=== PATIENT | female | born 1960 | race Caucasian/White ===

== ENCOUNTER 2024-01-17 09:05 | Emergency (ER) | payer OTHER ==
[~2024-01-17] VITALS: Ht 175.3 cm; Wt 80.0 kg
[2024-01-17 09:07] VITALS: O2SAT 97
[2024-01-17] MEDS: MORPHINE SULFATE 4 MG/ML INJ (FOR IV/IM USE) IV STA (09:38)
[2024-01-17 09:46] LABS: BASOPHILS % 0.4 % (0.0-2.0); HEMATOCRIT. 41.7 % (36.0-48.0); HEMOGLOBIN. 13.6 g/dL (12.0-16.0); LYMPHOCYTES % 10.9 % (20.0-50.0); MEAN CORPUSCULAR HEMOGLOBIN 29.3 pg (28.0-32.0); MEAN CORPUSCULAR HGB CONC 32.6 g/dL (31.0-37.0); MEAN CORPUSCULAR VOLUME 89.7 fL (81.0-99.0); MEAN PLATELET VOLUME 7.9 fl (7.4-10.4); MONOCYTES % 6.4 % (2.0-8.0); NEUTROPHILS % 81.3 % (40.0-76.0); PLATELET 271 x1000/uL (130-400); RED BLOOD CELL COUNT 4.64 mill/uL (4.2-5.4); RED CELL DISTRIBUTION WIDTH 13.5 % (11.6-14.6); WHITE BLOOD COUNT 12.3 x1000/uL (4.5-11.0)
[2024-01-17 09:56] LABS: CHLORIDE 109 mEq/L (98-107); POTASSIUM 3.8 mEq/L (3.5-5.1); SODIUM 141 mEq/L (136-145)
[2024-01-17 09:57] LABS: CALCIUM 9.4 mg/dL (8.7-10.4); CARBON DIOXIDE 25 mEq/L (21-32)
[2024-01-17 10:02] LABS: CREATININE 0.9 mg/dL (0.6-1.0); GLUCOSE 95 mg/dL (70-105); UREA NITROGEN BLOOD 20 mg/dL (9-23)
[2024-01-17 10:03] LABS: TROPONIN I HIGH SENSITIVITY 17 ng/L (3.0-34)
[2024-01-17] MEDS: ASPIRIN 325MG EC TABLET PO ONE (10:26)
[2024-01-17 10:58] LABS: INR 0.9; PROTHROMBIN TIME 10.4 sec (9.6-11.0)
[2024-01-17] MEDS: MORPHINE SULFATE 4 MG/ML INJ (FOR IV/IM USE) IV ONE (11:40)
[2024-01-17] MEDS: ESMOLOL 2500MG PREMIX 250 ML IV ONE (14:32)
[2024-01-17] MEDS: ESMOLOL 2500MG PREMIX 250 ML IV NR (14:32)
[2024-01-17 15:44] VITALS: TEMP 36.66960; O2SAT 95
[2024-01-17 16:04] VITALS: BP 132/63; PULSE 77; RESP 20
[2024-01-17] MEDS: MORPHINE SULFATE 4 MG/ML INJ (FOR IV/IM USE) IM ONE (16:04)
[2024-01-18] MEDS ORDERED: IOHEXOL-350 100 ML BOTTLE ONE (09:47)
== END 2024-01-17 16:08 | disposition short-term general hospital (02) ==
LOC: ER 09:16 → EDBEDREQ 09:22 → ER 16:08
DX: I71.00 Dissection of unspecified site of aorta (principal); I10 Essential (primary) hypertension; E78.00 Pure hypercholesterolemia, unspecified
CPT/HCPCS: 80048; 83880; 83605; 83690; 85025; 85610; 84484; 36415; 74174; 71045; 71275; 93005; 96365; 96372; 96375; 96376; 99285; J3490; J2270; Z7610 ×3